=== PATIENT | female | born 1980 | race Caucasian/White ===

== ENCOUNTER 2018-04-25 10:44 | Inpatient (IN) | payer OTHER ==
[2018-04-24 14:45] VITALS: Ht 165.1 cm; Wt 55.5 kg
[~2018-04-25] VITALS: Ht 165.1 cm; Wt 55.5 kg
[2018-04-25] VITALS (47 sets, daily range): BP systolic 71–126; BP diastolic 4–81; PULSE 44–94; RESP 12–38
[~2018-04-25 10:44] MED LIST: DEXAMETHASONE 4 MG/ML 5 ML INJ ONE; LIDOCAINE 2% (SDV) 5 ML INJ ONE; ONDANSETRON 4 MG INJ ONE
[2018-04-25] MEDS ORDERED: LEVO50TA7 PO (11:20)
[2018-04-25] MEDS ORDERED: LEVO25TA6 PO (11:22)
--- NOTE | 2018-04-25 11:54 | PREAC ---
Date/Time of Note Date/Time of Note DATE: 04/25/18 TIME: 11:53 Anesthesia Eval and Record Evaluation Time Pre-Procedure Interview DATE: 04/25/18 TIME: 11:53 Age 37 Sex female NPO: 8 hrs Preoperative diagnosis uterine bleeding Planned procedure d and c Past Medical History Past Medical History: Includes Endo: Hypothyroid Surgery & Anesthesia Issues No known issue Meds Anticoagulation: No Beta Art within 24 hr: No Reason Beta Art not given: Pt. not on B-Art Reported Medications Levothyroxine Sodium* (Levothyroxine Sodium*) 25 Mcg Tablet, 25 MCG PO BEFORE BREAKFAST, #30 TAB 04/25/18 Discontinued Reported Medications Levothyroxine Sodium* (Levothyroxine Sodium*) 50 Mcg Tablet, 50 MCG PO AC BREAKFAST 04/25/18 Meds reviewed: Yes Allergies Coded Allergies: morphine (Verified Adverse Reaction, Unknown, NAUSEA & DIZZINESS, 04/25/18) PER PT & VERIFIED: BUT (NKA) Allergies Reviewed: Yes Labs/Studies Labs Reviewed: Reviewed by anesthesiologist test: Negative Pre-procedure Exam Airway: Adequate mouth opening, Adequate thyromental dist Mallampati: Mallampati I Teeth: Normal Lung: Normal Heart: Normal ASA Physical Status ASA physical status: 2 Emergency: None Planned Anesthetic General/MAC: LMA Planned Pain Management Parenteral pain med Pre-operative Attestations Prior to commencing anesthesia and surgery, the patient was re-evaluated, there was verification of: *The patient's identity *The results of appropriate recent lab work and preoperative vital signs *The above evaluation not changing prior to induction *Anesthetic plan, risk benefits, alternative and complications discussed with patient/family; questions answered; patient/family understands, accepts and wishes to proceed. NOLAN MARIE Apr 25, 2018 11:54
[2018-04-25] MEDS ORDERED: PROPOFOL 100 ML ONE (12:23)
[2018-04-25] MEDS ORDERED: FENTAnyl 50 MCG/ML VIAL ONE (12:26)
--- NOTE | 2018-04-25 12:56 | SIPON ---
Date/Time of Note Date/Time of Note DATE: 04/25/18 TIME: 12:54 Operative Report Preoperative Diagnosis Abnormal uterine bleeding Postoperative Diagnosis Same Operation/Procedure Performed D&C Surgeon Vick Hurd MD assistant kitchen manager None Anesthesia: general Estimated blood loss: minimal Transfusion Required none Specimen ECC and EMC Grafts/Implants none Complications none VICK HURD MD Apr 25, 2018 12:56
--- NOTE | 2018-04-25 13:04 | PAC ---
Date/Time of Note Date/Time of Note DATE: 04/25/18 TIME: 13:04 Post-Anesthesia Notes Post-Anesthesia Note Last documented vital signs Vital Signs Date Temp Pulse Resp B/P (MAP) Pulse Ox O2 O2 Flow FiO2 Time Delivery Rate 04/25/18 97.9 64 16 91/60 (70) 100 Room Air 1304 Activity: WNL Respiratory function: WNL Cardiovascular function: WNL Mental status: Baseline Pain reasonably controlled: Yes Hydration appropriate: Yes Nausea/Vomiting absent: Yes NOLAN MARIE Apr 25, 2018 13:04
[2018-04-25] MEDS ORDERED: EPHEDrine SULFATE 50 MG/5 ML SYG ONE (13:05)
[2018-04-25] MEDS ORDERED: NALOXONE (0.4 MG/ML) INJ ONE (13:08)
--- NOTE | 2018-04-25 13:29 | PREOPHP ---
DATE OF ADMISSION: 04/25/2018 HISTORY OF PRESENT ILLNESS: A 37-year-old female, 0, last menstrual period about 8 months ag o, is admitted with history of abnormal uterine bleeding. The patient has a history of prolonged men ses in 2018. PAST MEDICAL HISTORY: Thyroid cancer and hypothyroidism. PAST SURGICAL HISTORY: Thyroidectomy. ALLERGIES: NO KNOWN ALLERGIES. FAMILY HISTORY: Noncontributory. PHYSICAL EXAMINATION: VITAL SIGNS: The patient is afebrile. Vital signs are stable. HEAD, NECK AND CHEST: Within normal limits. ABDOMEN: Soft, nontender, nondistended. PELVIC: Normal. EXTREMITIES: Within normal limits. NEUROLOGIC: Within normal limits. IMPRESSION: Abnormal uterine bleeding. PLAN: Dilation and curettage. Risks, benefits and alternatives of procedure were explained to the p atient. The patient said she understood and gave informed consent for the procedure. Dictated By: VICK MARMOLEJO/CLAUDIA Conf#: [id number] DID#: [id number]
[2018-04-25] MEDS ORDERED: FENTAnyl 50 MCG/ML VIAL IV PRN ×3 (13:30)
[2018-04-25] MEDS ORDERED: ONDANSETRON 4 MG INJ IV PRN (13:30)
[2018-04-25] MEDS ORDERED: LABETALOL HCL 20MG INJ IV PRN (13:30)
[2018-04-25] MEDS ORDERED: EPHEDrine SULFATE 50 MG/5 ML SYG IV PRN (13:30)
[2018-04-25] MEDS ORDERED: METOCLOPRAMIDE 10 MG INJ IV PRN (13:30)
[2018-04-25] MEDS ORDERED: MIDAZOLAM 1 MG/ML 2 ML INJ IV PRN (13:30)
[2018-04-25] MEDS ORDERED: KETOROLAC 30 MG INJ IV PRN (13:30)
[2018-04-25] MEDS ORDERED: hydrALAzine 20 MG INJ IV PRN (13:30)
[2018-04-25] MEDS ORDERED: OXYCODONE/ACETAMINOPHEN (5/325) TAB PO PRN ×2 (13:30)
[2018-04-25] MEDS ORDERED: ALBUTEROL 0.083% (NEB) 2.5 MG/3 ML AMP HHN PRN (13:30)
[2018-04-25] MEDS ORDERED: MEPERIDINE 25 MG INJ IV PRN (13:30)
[2018-04-25] MEDS ORDERED: DIPHENHYDRAMINE 50 MG INJ IV PRN (13:30)
[2018-04-25] MEDS ORDERED: MIDAZOLAM 1 MG/ML 2 ML INJ IV ONE (14:30)
--- NOTE | 2018-04-25 14:49 | OPR ---
DATE OF OPERATION: 04/25/2018 PREOPERATIVE DIAGNOSIS: Abnormal uterine bleeding. POSTOPERATIVE DIAGNOSIS: Abnormal uterine bleeding. OPERATION PERFORMED: Dilation and curettage. SURGEON: Vick Jarrett MD ANESTHESIA: General. ANESTHESIOLOGIST: Dr. Mathis. DESCRIPTION OF PROCEDURE: The patient was taken to the operating room, placed on the operating table in supine position. After adequate general anesthesia was given, the patient was placed in dorsal l ithotomy position. The area was prepared and draped in the usual sterile fashion. Speculum was plac ed inside the vagina. Tenaculum was used to grasp the anterior lip of the cervix. Using Kevorkian c urette, endocervical curettage was performed and specimen obtained was sent to pathology. Next using cervical dilators, the cervical os was dilated. Using a sharp curette, endometrial curettage was pe rformed and specimen obtained was sent to pathology. All instruments were removed. Adequate hemosta sis was assured. The patient tolerated the procedure well. The patient was awakened from anesthesia and transferred to recovery room in stable condition. Estimated blood loss was minimal. All counts were correct. Dictated By: VICK MARMOLEJO/NTS Conf#: [id number] DID#: [id number]
[2018-04-25] MEDS ORDERED: NALOXONE (0.4 MG/ML) INJ IV ONE (16:30)
[2018-04-25] MEDS ORDERED: LORAZEPAM 2 MG INJ ONE (16:57)
[2018-04-25] MEDS ORDERED: LORAZEPAM 2 MG INJ IV ONE ×2 (17:00→17:30)
--- NOTE | 2018-04-25 17:26 | HP ---
Date/Time of Note Date/Time of Note DATE: 04/25/18 TIME: 17:16 Assessment/Plan VTE Prophylaxis Pharmacological prophylaxis: heparin Lines/Catheters IV [facility] Type [facility]from [facility] Peripheral IV Assessment/Plan Hospital Course 37 yo female with hypothyroid who had D and C for AUB who then developed and acute dystonic reaction in the PACU which resolved with ativan 4 mg - It is not clear to me what caused this reaction but I suspect Zofran, unlikely to be a reacion to . I will add this to allergies. Perhaps she is taking a serotonergic agent as an outpatient? - At this point will admit her to the hospital overnight for observation - Can give benzodiazepines again if rigidity/acute dystonia recurs Result Diagram: 04/25/18 1104 Results 24hrs Laboratory Tests Test 04/25/18 11:04 04/25/18 16:33 White Blood Count 5.2 Red Blood Count 4.43 Hemoglobin 12.6 Hematocrit 38.1 Mean Corpuscular Volume 86.0 Mean Corpuscular Hemoglobin 28.4 L Mean Corpuscular Hemoglobin Concent 33.1 Red Cell Distribution Width 12.7 Platelet Count 192 Mean Platelet Volume 10.7 H Immature Granulocytes % 0.600 H Neutrophils % 67.1 Lymphocytes % 25.3 Monocytes % 5.6 Eosinophils % 0.8 Basophils % 0.6 Nucleated Red Blood Cells % 0.0 Immature Granulocytes # 0.030 Neutrophils # 3.5 Lymphocytes # 1.3 Monocytes # 0.3 Eosinophils # 0.0 Basophils # 0.0 Nucleated Red Blood Cells # 0.0 Bedside Glucose 85 HPI/ROS Admit Date/Time Admit Date/Time Hx of Present Illness 37 yo female h/o of hypothyroidism who is in PACU after D and C who has developed rigidity etc Patient had uncomplicated D and C. In OR, received proprofol, fentanyl and then zofran. In PACU noticed to be full body tremulous and poorly responsive. [employer] RES[employer] MANAGER was called I found her lethargic. Full body rigidity with ocular clonus. 2 mg ativan were given with partial response. Another two mg ativan were given and rigidity has resolved. She was able to follow commands throughout this Vitals veyr normal. No fever. No known seritonergic agents or antipyschotics ROS Constitutional: no complaints, improved Eyes: no complaints ENT: no complaints Respiratory: no complaints Cardiovascular: no complaints Gastrointestinal: no complaints Genitourinary: no complaints Musculoskeletal: no complaints Skin: no complaints Neurologic: no complaints Endocrine: no complaints Lymphatic: no complaints Psychological: no complaints, nl mood/affect Immunologic: no complaints PMH/Family/Social Past Medical History Hypothyroid Medications Current Medications Fentanyl (Sublimaze) 25 mcg PACU ORDER PRN IV MILD PAIN 1-3; Start 04/25/18 at 13:30; Stop 04/25/18 at 18:00 Fentanyl (Sublimaze) 50 mcg PACU ORDER PRN IV MOD PAIN 4-6; Start 04/25/18 at 13:30; Stop 04/25/18 at 18:00 Fentanyl (Sublimaze) 75 mcg PACU ORDER PRN IV SEVERE PAIN 7-10; Start 04/25/18 at 13:30; Stop 04/25/18 at 18:00 Ketorolac Tromethamine (Toradol) 30 mg PACU ORDER PRN IV FOR PAIN AFTER IV NARCOTIC MED Last administered on 04/25/18at 14:25; Admin Dose 30 MG; Start 04/25/18 at 13:30; Stop 04/25/18 at 18:00 Oxycodone/ Acetaminophen (Percocet (5/ 325)) 1 tab PACU ORDER PRN PO .PAIN 1-5; Start 04/25/18 at 13:30; Stop 04/25/18 at 18:00 Oxycodone/ Acetaminophen (Percocet (5/ 325)) 2 tab PACU ORDER PRN PO .PAIN 6-10; Start 04/25/18 at 13:30; Stop 04/25/18 at 18:00 Ondansetron HCl (Zofran Inj) 4 mg PACU ORDER PRN IV NAUSEA/VOMITING; Start 04/25/18 at 13:30; Stop 04/25/18 at 18:00 Metoclopramide HCl (Reglan) 10 mg PACU ORDER PRN IV NAUSEA/VOMITING; Start 04/25/18 at 13:30; Stop 04/25/18 at 18:00 Labetalol HCl (Labetalol) 5 mg PACU ORDER PRN IV HIGH BLOOD PRESSURE; Start 04/25/18 at 13:30; Stop 04/25/18 at 18:00 Hydralazine HCl (Apresoline) 5 mg PACU ORDER PRN IV HIGH BLOOD PRESSURE; Start 04/25/18 at 13:30; Stop 04/25/18 at 18:00 Ephedrine Sulfate 5 mg PACU ORDER PRN IV BLOOD PRESSURE SUPPORT Last administered on 04/25/18 14:23; Admin Dose 5 MG; Start 04/25/18 at 13:30; Stop 04/25/18 at 18:00 Albuterol (Proventil 0.083% (Neb)) 2.5 mg PACU ORDER PRN HHN .WHEEZING; Start 04/25/18 at 13:30; Stop 04/25/18 at 18:00 Meperidine HCl (Demerol) 25 mg PACU ORDER PRN IV .RIGORS Last administered on 04/25/18 14:22; Admin Dose 25 MG; Start 04/25/18 at 13:30; Stop 04/25/18 at 18:00 Diphenhydramine HCl (Benadryl) 25 mg PACU ORDER PRN IV .PRURITUS; Start 04/25/18 at 13:30; Stop 04/25/18 at 18:00 Midazolam HCl (Versed) 0.5 mg PACU ORDER PRN IV .ANXIETY; Start 04/25/18 at 13:30; Stop 04/25/18 at 18:00 Lorazepam (Ativan) 2 mg ONCE ONCE IV Last administered on 04/25/18at 17:13; Admin Dose 2 MG; Start 04/25/18 at 17:30; Stop 04/25/18 at 17:31 Coded Allergies: No Known Allergy (Unverified , 04/25/18) Past Surgical History D and C Past Surgical Hx: no surgical history Family History Significant Family History: no pertinent family hx Social History Alcohol Use: none Smoking Status: Never smoker Drug Use: none Exam/Review of Systems Vital Signs Vitals Vital Signs Date Temp Pulse Resp B/P (MAP) Pulse Ox O2 O2 Flow FiO2 Time Delivery Rate 04/25/18 64 14 120/69 99 Nasal 2.0 14:37 (86) Cannula 04/25/18 98.2 13:00 Exam Exam At time of [employer] RES[employer] MANAGER patient was: Lethargic but responsive to commands Eyes with ocular clonus bilaterally Tremor of head and neck Stiff rigidity throughout arms, legs, hand with clawing of hands No diaphoresis Heart sounds normal Hyperreflexic MILGROMAIRAM MD Apr 25, 2018 17:26
[2018-04-25] MEDS ORDERED: HYDROmorphONE 0.5 MG/0.5 ML SYG IV PRN (17:30)
[2018-04-25] MEDS ORDERED: NACL 0.9% 3 ML SYG IV SCH (17:30)
[2018-04-25] MEDS ORDERED: POTASSIUM CHLORIDE (SR) 20 MEQ TAB PO STA ×2 (18:33→18:37)
[2018-04-26] VITALS: BP 92/58; PULSE 57; PULSE 62; RESP 17
[2018-04-26 04:00] VITALS: BP 96/61; PULSE 56; PULSE 82; RESP 17
[2018-04-26 07:34] VITALS: BP 101/69; PULSE 58; RESP 19
[2018-04-26 08:24] VITALS: PULSE 62
--- NOTE | 2018-04-26 09:34 | OPPN ---
Date/Time of Note Date/Time of Note DATE: 04/26/18 TIME: 09:19 Anesthesia Follow up Anesthesia Follow up Last documented vital signs Vital Signs Date Temp Pulse Resp B/P (MAP) Pulse Ox O2 O2 Flow FiO2 Time Delivery Rate 04/26/18 62 08:24 04/26/18 97.6 19 101/69 100 07:34 (80) 04/25/18 Nasal 2.0 20:30 Cannula Respiratory function: WNL Cardiovascular function: WNL Comments Events during PACU noted. Patient status post uneventful d&c, in the recovery room developed dystonic /extrapyramidal reactions including oculogyric movements, dyskinesia, somewhat relieved wit IV versed and later with IV ativan. Currently patient is stable, VSS, and alert and oriented times 4 without complaints. It appears patient developed an adverse reaction to the anti serotoninergic antagonist zofran. Zofran in rare cases can lead to the above adverse reactions and can normally be counteracted with cogentin, or benadryl. It is unlikely the other medications used during surgery, propofol or fentanyl, could have caused these reactions. Currently patient is stable without any further reactions. Will continue to follow and await further discharge care per primary care. NOLAN MARIE Apr 26, 2018 09:33
[2018-04-26 11:38] VITALS: BP 101/66; PULSE 69; RESP 19
[2018-04-26] MEDS ORDERED: LEVO25TA6 PO (11:57)
[2018-04-26 12:19] VITALS: PULSE 71
--- NOTE | 2018-04-26 17:29 | DS ---
Date/Time of Note Date/Time of Note DATE: 04/26/18 TIME: 17:29 Discharge Summary Admission/Discharge Info Admit Date/Time Apr 25, 2018 at 17:27 Discharge Date/Time Apr 26, 2018 at 15:24 Discharge Diagnosis Acute dystonia Patient Condition: Stable Hx of Present Illness 37 yo female h/o of hypothyroidism who is in PACU after D and C who has develo ped rigidity etc Patient had uncomplicated D and C. In OR, received proprofol, fentanyl and then zofran. In PACU noticed to be full body tremulous and poorly responsive. SERVICE NOW DEVELOPER was called I found her lethargic. Full body rigidity with ocular clonus. 2 mg ativan were given with partial response. Another two mg ativan were given and rigidity has resolved. She was able to follow commands throughout this Vitals veyr normal. No fever. No known seritonergic agents or antipyschotics Hospital Course 37 yo female with hypothyroid who had D and C for AUB who then developed and acute dystonic reaction in the PACU which resolved with ativan 4 mg She was monitored overnight and had no recurrence of her symptoms Her TSH was 97. I prescirbed her syntrhoid 100 mcg (previously taking only 25mcg) and encouraged her to follow up with her doctor Home Meds Active Scripts Levothyroxine Sodium* (Levothyroxine Sodium*) 25 Mcg Tablet, 100 MCG PO BEFORE BREAKFAST, #30 TAB Prov:AIRAM SORIANO MD 04/26/18 Discontinued Reported Medications Levothyroxine Sodium* (Levothyroxine Sodium*) 50 Mcg Tablet, 50 MCG PO AC BREAKFAST 04/25/18 Primary Care Provider Not On Staff Doctor Pending Labs Laboratory Tests Test 04/25/18 17:41 04/26/18 06:56 04/26/18 07:29 White Blood Count 4.3 5.9 10^3/ul (4.8-10.8) 10^3/ul (4.8-10.8) Red Blood Count 3.91 4.27 10^6/ul (4.20-5.40) 10^6/ul (4.20-5.40) Hemoglobin 11.2 12.4 g/dl (12.0-16.0) g/dl (12.0-16.0) Hematocrit 33.7 % (37.0-47.0) 37.0 % (37.0-47.0) Mean Corpuscular 86.2 fl (82.0-101.0) 86.7 fl (82.0-101.0) Volume Mean Corpuscular 28.6 pg (29.0-33.0) 29.0 pg (29.0-33.0) Hemoglobin Mean Corpuscular 33.2 33.5 Hemoglobin Concent g/dl (32.0-37.0) g/dl (32.0-37.0) Red Cell Distribution 12.7 % (11.5-14.5) 12.6 % (11.5-14.5) Width Platelet Count 158 165 10^3/UL (140-415) 10^3/UL (140-415) Mean Platelet Volume 10.7 fl (7.4-10.4) 10.6 fl (7.4-10.4) Immature Granulocytes 0.200 0.300 % % (0.001-0.429) % (0.001-0.429) Neutrophils % 61.7 % (39.0-77.0) 66.5 % (39.0-77.0) Lymphocytes % 32.2 % (15.0-51.0) 25.8 % (15.0-51.0) Monocytes % 4.7 % (0.0-11.0) 5.6 % (0.0-11.0) Eosinophils % 0.7 % (0.0-7.0) 1.5 % (0.0-7.0) Basophils % 0.5 % (0.0-2.0) 0.3 % (0.0-2.0) Nucleated Red Blood 0.0 0.0 Cells % /100WBC (0.0-0.0) /100WBC (0.0-0.0) Immature Granulocytes 0.010 0.020 # 10^3/ul (0.0-0.031) 10^3/ul (0.0-0.031) Neutrophils # 2.6 4.0 10^3/ul (1.6-7.5) 10^3/ul (1.6-7.5) Lymphocytes # 1.4 1.5 10^3/ul (0.8-2.9) 10^3/ul (0.8-2.9) Monocytes # 0.2 0.3 10^3/ul (0.3-0.9) 10^3/ul (0.3-0.9) Eosinophils # 0.0 0.1 10^3/ul (0.0-0.5) 10^3/ul (0.0-0.5) Basophils # 0.0 0.0 10^3/ul (0.0-0.1) 10^3/ul (0.0-0.1) Nucleated Red Blood 0.0 0.0 Cells # 10^3/ul (0.0-0.0) 10^3/ul (0.0-0.0) CBC Results Faxed/Phoned Sodium Level 142 mmol/L (135-144) 140 mmol/L (135-144) Potassium Level 3.2 mmol/L (3.5-5.1) 3.9 mmol/L (3.5-5.1) Chloride Level 106 mmol/L (97-110) 104 mmol/L (97-110) Carbon Dioxide Level 27 mmol/L (21-31) 28 mmol/L (21-31) Anion Gap 9 (5-13) 8 (5-13) Blood Urea Nitrogen 6 mg/dl (7-20) 4 mg/dl (7-20) Creatinine 0.46 0.55 mg/dl (0.44-1.00) mg/dl (0.44-1.00) Est Glomerular > 60 mL/min (>60) > 60 mL/min (>60) Filtrat Rate mL/min Glucose Level 79 mg/dl (70-220) 87 mg/dl (70-220) Calcium Level 8.6 mg/dl (8.4-10.2) 8.7 mg/dl (8.4-10.2) Total Bilirubin 0.3 mg/dl (0.2-1.3) 0.5 mg/dl (0.2-1.3) Direct Bilirubin 0.00 0.00 mg/dl (0.00-0.20) mg/dl (0.00-0.20) Indirect Bilirubin 0.3 mg/dl (0-1.1) 0.5 mg/dl (0-1.1) Aspartate Amino 42 IU/L (15-46) 55 IU/L (15-46) Transf (AST/SGOT) Alanine 64 IU/L (13-69) 74 IU/L (13-69) Aminotransferase (ALT /SGPT) Alkaline Phosphatase 47 IU/L (42-121) 50 IU/L (42-121) Creatine Kinase 80 IU/L (23-200) Total Protein 5.7 g/dl (6.1-8.1) 6.0 g/dl (6.1-8.1) Albumin 3.3 g/dl (3.3-4.9) 3.5 g/dl (3.3-4.9) Globulin 2.40 g/dl (1.3-3.2) 2.50 g/dl (1.3-3.2) Albumin/Globulin 1.37 1.40 Ratio Hemoglobin A1c 4.9 % (0-5.9) Thyroid Stimulating 97.000 Hormone (TSH) MIU/L (0.465-4.680) Lab Scanned Report LAB [id number] AIRAM SORIANO MD Apr 26, 2018 17:29
== END 2018-04-26 15:24 | disposition home or self-care (01) | DRG 745 ==
LOC: SDS 10:44 → REC 17:27 → SDS 17:27 → TEL 20:10
PROVIDERS: ADMIT Obstetrics & Gynecology; ATTEND Obstetrics & Gynecology
PROC: 0UDB7ZX Extraction of Endometrium, Via Natural or Artificial Opening, Diagnostic (ICD-10-PCS; principal; 2018-04-25 12:30)
DX: N93.9 Abnormal uterine and vaginal bleeding, unspecified (principal); G24.9 Dystonia, unspecified; Z85.850 Personal history of malignant neoplasm of thyroid; E03.9 Hypothyroidism, unspecified
CPT/HCPCS: 70450; 80053; 82550; 82962; 83036; 84443; 85025; 86850; 86900; 86901; 88305; J1100; J1885; J2060; J2175; J2250; J2310; J2405; J3010